=== PATIENT | female | born 1995 | race Caucasian/White ===

== ENCOUNTER 2018-02-06 17:05 | Emergency (ER) | payer BC ==
[2018-02-06] MEDS ORDERED: Lidocaine 2% Viscous Solution 15 ML Cup PO ONE (17:10)
[2018-02-06] MEDS ORDERED: Benzocaine 20% Topical Spray UD MUCMEM ONE (17:10)
--- NOTE | 2018-02-06 17:22 | EDM.PDOC ---
ED HPI GENERAL MEDICAL PROBLEM - General Chief Complaint: ENT Problem Stated Complaint: TOOTH PAIN Time Seen by Provider: 02/06/18 17:07 Source of Information: Reports: Patient History Limitations: Reports: No Limitations - History of Present Illness INITIAL COMMENTS - FREE TEXT/NARRATIVE: HISTORY AND PHYSICAL: History of present illness: patient is a 22-year-old female who presents to the emergency room with complaints of right upper dental pain. She states she has had chronic problems with the affected teeth and has been seen intermittently for pain management. She states she has made dentist appointment but has canceled them as usually her pain will resolve. Currently 13 weeks , has no current OB concerns. she denies any fever, chills, chest pain, shortness of breath or cough. Denies any abdominal pain, nausea, vomiting, diarrhea or constipation. Denies any chance of . Review of systems: As per history of present illness and below otherwise all systems reviewed and negative. Past medical history: As per history of present illness and as reviewed below otherwise noncontributory. Surgical history: As per history of present illness and as reviewed below otherwise noncontributory. Social history: No reported history of drug or alcohol abuse. Family history: As per history of present illness and as reviewed below otherwise noncontributory. Physical exam: General: Well-developed and well-nourished 22-year-old female. Alert and oriented. Nooxic appearing and in no acute distress. HEENT: Atraumatic, normocephalic, pupils equal and reactive bilaterally, negative for conjunctival pallor or scleral icterus, mucous membranes moist, throat clear, neck supple, nontender, trachea midline. No drooling or trismus noted. No meningeal signs Lungs: Clear to auscultation, breath sounds equal bilaterally, chest nontender. Heart: S1S2, regular rate and rhythm without overt murmur Abdomen: Soft, nondistended, nontender. Negative for masses or hepatosplenomegaly. Negative for costovertebral tenderness. Pelvis: Stable nontender. Genitourinary: Deferred. Rectal: Deferred. Skin: Intact, warm, dry. No lesions or rashes noted. Extremities: Atraumatic, negative for cords or calf pain. Neurovascular unremarkable. Neuro: Awake, alert, oriented. Cranial nerves II through XII unremarkable. Cerebellum unremarkable. Motor and sensory unremarkable throughout. Exam nonfocal. Notes: Discussed the importance of maintaining her dental appointments for further evaluation and management of her chronic dental pain. She voices understanding and is agreeable to plan of care. Denies any further questions at this time. Diagnostics: None Therapeutics: Dental Balls (Viscous Lidocaine/[place]) Prescription: Clindamycin Impression: Dental Abscess Plan: 1. Please take the antibiotic as prescribed. 2. Tylenol as needed for pain management (only pain medication safe in ). "Tooth Balls" have been given to you; apply along the gumline every 2-3 hours as needed. Do not swallow these; external use only. 3. Follow-up with a dentist for definitive care. Return to the ED as needed and as discussed. Definitive disposition and diagnosis as appropriate pending reevaluation and review of above. Right Oral/Mouth Pain Score (Numeric/FACES): 10 - Related Data Allergies Allergy/AdvReac Type Severity Reaction Status Date / Time amoxicillin [Amoxicillin] Allergy Hives Verified 02/06/18 17:32 codeine Allergy Nausea Verified 02/06/18 17:32 hydrocodone Allergy Nausea Verified 02/06/18 17:32 Penicillins Allergy Hives Verified 02/06/18 17:32 Home Meds: Home Meds Vits #93/Iron Fum/FA [ Formula Tablet] 1 each PO DAILY [History] Doxylamine/Pyridoxine HCl [Diclegis Dr 10-10 mg Tablet] 2 tab PO BEDTIME [History] Past Medical History - Past Health History Medical/Surgical History: Denies Medical/Surgical History ED ROS ENT - Review of Systems Review Of Systems: ROS reveals no pertinent complaints other than HPI. ED EXAM, ENT - Physical Exam Exam: See Below (See dictation) Course - Vital Signs Last Recorded V/S: Last Vital Signs Temp 98.4 F 02/06/18 17:30 Pulse 104 H 02/06/18 17:30 Resp 18 02/06/18 17:30 BP 158/92 H 02/06/18 17:30 Pulse Ox 100 02/06/18 17:30 - Orders/Labs/Meds Meds: Medications Discontinued Medications Generic Name Dose Route Start Last Admin Trade Name Freq PRN Reason Stop Dose Admin Benzocaine 2 each 02/06/18 17:10 02/06/18 17:43 Hurricaine One 20% MUCMEM 02/06/18 17:11 2 each ONETIME ONE Administration Lidocaine HCl 15 ml 02/06/18 17:10 02/06/18 17:43 Xylocaine 2% Viscous PO 02/06/18 17:11 15 ml ONETIME ONE Administration Departure - Departure Time of Disposition: 17:47 Disposition: Home, Self-Care 01 Clinical Impression: Dental abscess - Discharge Information Instructions: Dental Abscess, [id number] Referrals: Marcelina Alvarez NP [Primary Care Provider] - Forms: ED Department Discharge Additional Instructions: The following information is given to patients seen in the emergency department who are being discharged to home. This information is to outline your options for follow-up care. We provide all patients seen in our emergency department with a follow-up referral. The need for follow-up, as well as the timing and circumstances, are variable depending upon the specifics of your emergency department visit. If you don't have a primary care physician on staff, we will provide you with a referral. We always advise you to contact your personal physician following an emergency department visit to inform them of the circumstance of the visit and for follow-up with them and/or the need for any referrals to a consulting specialist. The emergency department will also refer you to a specialist when appropriate. This referral assures that you have the opportunity for follow-up care with a specialist. All of these measure are taken in an effort to provide you with optimal care, which includes your follow-up. Under all circumstances we always encourage you to contact your private physician who remains a resource for coordinating your care. When calling for follow-up care, please make the office aware that this follow-up is from your recent emergency room visit. If for any reason you are refused follow-up, please contact the [facility] Emergency Department at and asked to speak to the emergency department charge nurse. [facility] Primary Care [address] [place] [id number] 1. Please take the antibiotic as prescribed. 2. Tylenol as needed for pain management (only pain medication safe in ). "Tooth Balls" have been given to you; apply along the gumline every 2-3 hours as needed. Do not swallow these; external use only. 3. Follow-up with a dentist for definitive care. Return to the ED as needed and as discussed.
[2018-02-06 17:32] VITALS: BP 158/92
== END 2018-02-06 17:58 | disposition home or self-care (01) ==
LOC: MW.ED 17:05
DX: K04.7 Periapical abscess without sinus (principal)
CPT/HCPCS: 99282; A9270; 99283

== ENCOUNTER 2018-07-29 07:53 | Inpatient (IN) | payer BC ==
[2018-07-29] MEDS ORDERED: Carboprost Tromethamine 250 MCG/1 ML Amp IM PRN (17:56)
[2018-07-29] MEDS ORDERED: Lidocaine 1% 50 ML MDV INJECT PRN (17:56)
[2018-07-29] MEDS ORDERED: Terbutaline 1 MG/ML SDV SUBCUT PRN (17:56)
[2018-07-29] MEDS ORDERED: Magnesium Sulfate/Water 4 GM in Premix Bag 1 BAG IV ONE (17:56)
[2018-07-29] MEDS ORDERED: Butorphanol 1 MG/ML SDV IVPUSH PRN (17:56)
[2018-07-29] MEDS ORDERED: Calcium Gluconate 10% 1 GM/10 ML SDV IV PRN (17:56)
[2018-07-29] MEDS ORDERED: Tranexamic Acid 1,000 MG in Sodium Chloride 0.9% 100 ML IV PRN (17:56)
[2018-07-29] MEDS ORDERED: Misoprostol 200 MCG Tab PO PRN (17:56)
[2018-07-29] MEDS ORDERED: Nalbuphine 10 MG/1 ML Vial IVPUSH PRN (17:56)
[2018-07-29] MEDS ORDERED: Water For Irrigation,Sterile 1,000 ML Container IRR PRN (17:56)
[2018-07-29] MEDS ORDERED: Methylergonovine 0.2 MG/1 ML Amp IM PRN (17:56)
[2018-07-29] MEDS ORDERED: Lactated Ringers 1,000 ML IV SCH (18:00)
[2018-07-29] MEDS ORDERED: Oxytocin/0.9 % Sodium Chloride 30 UNIT/500 ML BAG IV SCH ×2 (18:00)
[2018-07-29] MEDS: Magnesium Sulfate/Water 40 GM/1,000 ML BAG IV SCH (19:00)
[2018-07-29] MEDS ORDERED: Vitamin B6-pyridOXINE 50 MG Tab PO SCH (21:00)
[2018-07-29] MEDS ORDERED: Lidocaine HCl/EPINEPHrine 5 ML IJ ONE (21:10)
--- NOTE | 2018-07-29 22:08 | PCM.PREANE ---
Preanesthetic Assessment - Anesthesia/Transfusion/Family Hx Anesthesia History: Prior Anesthesia Without Reaction (D+C x 2, neck lymph nodes , labor epidural: GA and epidural without issues or problems) Other Type of Anesthesia Reaction Comment: MOTHER DENIES ANY HX OF ANESTHESIA PROBLEMS Family History of Anesthesia Reaction: No Transfusion History: No Prior Transfusion(s) - Review of Systems General: No Symptoms (pre eclampsia, on magnesium sulfate drip. 37.6 weeks ) Pulmonary: No Symptoms (asthma with sheezing in the past. No history of asthma attacks. Last wheezing 2011) Cardiovascular: No Symptoms (pre eclampsia) Gastrointestinal: No Symptoms (nausea during treated with Vit B6 pills ) Neurological: No Symptoms (sciatica on right side on and off--none for 2 months now. 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 water and ice since then) Pulse: 97 (fht 127) O2 Sat by Pulse Oximetry: 100 Respiratory Rate: 22 Blood Pressure: 133/83 Temperature: 97.7 C Height: 1.52 m Weight: 79.832 kg ASA Class: 3E Mental Status: Alert & Oriented x3 Airway Class: Mallampati = 2 Dentition: Reports: Normal Dentition Thyro-Mental Finger Breadths: 2 Mouth Opening Finger Breadths: 3 (tongue stud) ROM/Head Extension: Full Lungs: Clear to Auscultation, Normal Respiratory Effort Cardiovascular: Regular Rate, Regular Rhythm - Lab Values: Laboratory Last Values WBC 13.21 K/uL (4.0-11.0) H 07/29/18 18:45 RBC 4.22 M/uL (4.30-5.90) L 07/29/18 18:45 Hgb 11.1 g/dL (12.0-16.0) L 07/29/18 18:45 Hct 34.7 % (36.0-46.0) L 07/29/18 18:45 MCV 82.2 fL (80.0-98.0) 07/29/18 18:45 MCH 26.3 pg (27.0-32.0) L 07/29/18 18:45 MCHC 32.0 g/dL (31.0-37.0) 07/29/18 18:45 RDW Std Deviation 47.1 fl (28.0-62.0) 07/29/18 18:45 RDW Coeff of Sky 16 % (11.0-15.0) H 07/29/18 18:45 Plt Count 237 K/uL (150-400) 07/29/18 18:45 MPV 10.40 fL (7.40-12.00) 07/29/18 18:45 Nucleated RBC % 0.0 /100WBC 07/29/18 18:45 Nucleated RBCs # 0 K/uL 07/29/18 18:45 Magnesium 2.0 mg/dL (1.8-2.4) 07/29/18 18:45 Blood Type B NEGATIVE 07/29/18 18:45 Antibody Screen NEGATIVE 07/29/18 18:45 - Allergies Allergies/Adverse Reactions: Allergies Allergy/AdvReac Type Severity Reaction Status Date / Time amoxicillin [Amoxicillin] Allergy Hives Verified 07/09/18 22:49 codeine Allergy Nausea Verified 07/09/18 22:49 hydrocodone Allergy Nausea Verified 07/09/18 22:49 Penicillins Allergy Hives Verified 07/09/18 22:49 - Blood Blood Available: No Product(s) Available: None - Anesthesia Plan Pre-Op Medication Ordered: None - Acknowledgements Anesthesia Type Planned: Epidural (Plan: labor epidural. Discussed with patient and baby daddy and mom and dad and grandma and grandpa. all questions answered. 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 , Other (See Below) Other OB/BYN History: D&C Apr 2014 and Jun 2016 Psychiatric History: Reports: Anxiety - Past Surgical History HEENT Surgical History: Reports: Other (See Below) Other HEENT Surgeries/Procedures: Neck Surgery Jul 2010 Female Surgical History: Reports: D&C - SUBSTANCE USE Smoking Status *Q: Former Smoker Tobacco Use Within Last Twelve Months: Cigarettes Second Hand Smoke Exposure: Yes Recreational Drug Use History: No - HOME MEDS Home Medications: Home Meds Vits #93/Iron Fum/FA [ Formula Tablet] 1 each PO DAILY [History] Doxylamine/Pyridoxine HCl [Diclegis Dr 10-10 mg Tablet] 2 tab PO BEDTIME [History] - CURRENT (IN HOUSE) MEDS Current Meds: Current Medications Butorphanol Tartrate (Stadol) 1 mg IVPUSH ASDIRECTED PRN PRN Reason: Pain Calcium Gluconate (Calcium Gluconate) 1 gm IV ASDIRECTED PRN PRN Reason: respiratory distress Carboprost Tromethamine (Hemabate Ds) 250 mcg IM ASDIRECTED PRN PRN Reason: Post Hemorrhage Lactated Ringer's (Ringers, Lactated) 1,000 mls @ 150 mls/hr IV ASDIRECTED NAEEM Last Admin: 07/29/18 19:20 Dose: 150 mls/hr Magnesium Sulfate (Magnesium Sulfate 40 Gm In Water 1000 Ml) 40 gm in 1,000 mls @ 50 mls/hr IV ASDIRECTED NAEEM; Protocol Oxytocin/Sodium Chloride (Oxytocin 30 Unit/500 Ml-Ns) 30 unit in 500 mls @ 2 mls/hr IV TITRATE NAEEM; Protocol Last Titration: 07/29/18 21:39 Dose: 6 munits/min, 6 mls/hr Oxytocin/Sodium Chloride (Oxytocin 30 Unit/500 Ml-Ns) 30 unit in 500 mls @ 999 mls/hr IV TITRATE NAEEM Tranexamic Acid 1,000 mg/ (Sodium Chloride) 110 mls @ 660 mls/hr IV ONETIME PRN PRN Reason: Bleeding Lidocaine HCl (Xylocaine 1%) 50 ml INJECT ONETIME PRN PRN Reason: Laceration repair Methylergonovine Maleate (Methergine) 0.2 mg IM ASDIRECTED PRN PRN Reason: Post Hemorrhage Misoprostol (Cytotec) 200 mcg PO ONETIME PRN PRN Reason: Post Hemorrhage Nalbuphine HCl (Nubain) 10 mg IVPUSH ASDIRECTED PRN PRN Reason: Pain (severe 7-10) Pyridoxine HCl (Vitamin B6-Pyridoxine) 25 mg PO BEDTIME NAEEM Sterile Water (Sterile Water For Irrigation) 1,000 ml IRR ASDIRECTED PRN PRN Reason: delivery Terbutaline Sulfate (Brethine) 0.25 mg SUBCUT ASDIRECTED PRN PRN Reason: Tacysystole Discontinued Medications Magnesium Sulfate 4 gm/ Premix 100 mls @ 300 mls/hr IV BOLUS ONE Stop: 07/29/18 18:15 Last Admin: 07/29/18 18:40 Dose: 300 mls/hr Fentanyl/Bupivacaine HCl (Zcuywlbv-Zymyl-Ew 2 Mcg/Ml-0.125%) Confirm Administered Dose 100 mls @ as directed .ROUTE .STK-MED ONE Stop: 07/29/18 21:10 Lidocaine/Epinephrine (Lidocaine 1.5%-Epi 1:200,000) Confirm Administered Dose 10 ml IJ .STK-MED ONE Stop: 07/29/18 21:11
[2018-07-30] MEDS ORDERED: Ondansetron 4 MG/2 ML SDV IVPUSH PRN (00:25)
--- NOTE | 2018-07-30 08:14 | PCM.DEL ---
L & D Note - General Info Date of Service: 07/30/18 Mother's Due Date: 08/13/18 - Delivery Note Labor: Augmented by ARM, Induced by Oxytocin Delivery Outcome: Livebirth Delivery Method: Spontaneous Vaginal Delivery-Single Nuchal Cord: Present Prep: Other Anesthesia Type: Epidural Episiotomy Type: None Laceration: None Placenta: Intact, Spontaneous Cord: 3 Vessels Estimated Blood Loss: 200 Resuscitation Needed: No Score 1 min: 7 Score 5 min: 9 Second Stage Interventions: Reports: Encouragement Given, Pushing, Feet in Foot Rests (Liveborn male 03/06 weight 3030 grams. ) - General Info Date of Service: 07/30/18 - Patient Data Vitals - Most Recent: Last Vital Signs Temp 97.7 C H 07/29/18 22:08 Pulse 97 07/29/18 22:08 Resp 22 H 07/29/18 22:08 BP 133/83 07/29/18 22:08 Pulse Ox 100 07/29/18 22:08 Weight - Most Recent: 79.832 kg I&O - Last 24 Hours: Intake & Output 07/29/18 07/30/18 07/30/18 22:59 06:59 14:59 Intake Total 1140 706 140 Output Total 420 245 140 Balance 720 461 0 Lab Results Last 24 Hours: Laboratory Results - last 24 hr 07/29/18 07/29/18 07/29/18 Range/Units 18:45 18:45 18:45 WBC 13.21 H (4.0-11.0) K/uL RBC 4.22 L (4.30-5.90) M/uL Hgb 11.1 L (12.0-16.0) g/dL Hct 34.7 L (36.0-46.0) % MCV 82.2 (80.0-98.0) fL MCH 26.3 L (27.0-32.0) pg MCHC 32.0 (31.0-37.0) g/dL RDW Std Deviation 47.1 (28.0-62.0) fl RDW Coeff of Sky 16 H (11.0-15.0) % Plt Count 237 (150-400) K/uL MPV 10.40 (7.40-12.00) fL Nucleated RBC % 0.0 /100WBC Nucleated RBCs # 0 K/uL Magnesium 2.0 (1.8-2.4) mg/dL Blood Type B NEGATIVE Antibody Screen NEGATIVE 07/29/18 07/30/18 Range/Units 23:07 05:57 WBC (4.0-11.0) K/uL RBC (4.30-5.90) M/uL Hgb (12.0-16.0) g/dL Hct (36.0-46.0) % MCV (80.0-98.0) fL MCH (27.0-32.0) pg MCHC (31.0-37.0) g/dL RDW Std Deviation (28.0-62.0) fl RDW Coeff of Sky (11.0-15.0) % Plt Count (150-400) K/uL MPV (7.40-12.00) fL Nucleated RBC % /100WBC Nucleated RBCs # K/uL Magnesium 5.1 H 6.4 H (1.8-2.4) mg/dL Blood Type Antibody Screen Med Orders - Current: Current Medications Butorphanol Tartrate (Stadol) 1 mg IVPUSH ASDIRECTED PRN PRN Reason: Pain Calcium Gluconate (Calcium Gluconate) 1 gm IV ASDIRECTED PRN PRN Reason: respiratory distress Carboprost Tromethamine (Hemabate Ds) 250 mcg IM ASDIRECTED PRN PRN Reason: Post Hemorrhage Lactated Ringer's (Ringers, Lactated) 1,000 mls @ 150 mls/hr IV ASDIRECTED NAEEM Last Admin: 07/29/18 19:20 Dose: 150 mls/hr Magnesium Sulfate (Magnesium Sulfate 40 Gm In Water 1000 Ml) 40 gm in 1,000 mls @ 50 mls/hr IV ASDIRECTED NAEEM; Protocol Last Titration: 07/30/18 07:13 Dose: 1 gm/hr, 25 mls/hr Oxytocin/Sodium Chloride (Oxytocin 30 Unit/500 Ml-Ns) 30 unit in 500 mls @ 2 mls/hr IV TITRATE NAEEM; Protocol Last Titration: 07/30/18 07:32 Dose: 11 munits/min, 11 mls/hr Oxytocin/Sodium Chloride (Oxytocin 30 Unit/500 Ml-Ns) 30 unit in 500 mls @ 999 mls/hr IV TITRATE NAEEM Tranexamic Acid 1,000 mg/ (Sodium Chloride) 110 mls @ 660 mls/hr IV ONETIME PRN PRN Reason: Bleeding Lidocaine HCl (Xylocaine 1%) 50 ml INJECT ONETIME PRN PRN Reason: Laceration repair Methylergonovine Maleate (Methergine) 0.2 mg IM ASDIRECTED PRN PRN Reason: Post Hemorrhage Misoprostol (Cytotec) 200 mcg PO ONETIME PRN PRN Reason: Post Hemorrhage Nalbuphine HCl (Nubain) 10 mg IVPUSH ASDIRECTED PRN PRN Reason: Pain (severe 7-10) Ondansetron HCl (Zofran) 4 mg IVPUSH Q6H PRN PRN Reason: Nausea/Vomiting Last Admin: 07/30/18 00:37 Dose: 4 mg Pyridoxine HCl (Vitamin B6-Pyridoxine) 25 mg PO BEDTIME NAEEM Last Admin: 07/29/18 22:38 Dose: 25 mg Sterile Water (Sterile Water For Irrigation) 1,000 ml IRR ASDIRECTED PRN PRN Reason: delivery Terbutaline Sulfate (Brethine) 0.25 mg SUBCUT ASDIRECTED PRN PRN Reason: Tacysystole Discontinued Medications Magnesium Sulfate 4 gm/ Premix 100 mls @ 300 mls/hr IV BOLUS ONE Stop: 07/29/18 18:15 Last Admin: 07/29/18 18:40 Dose: 300 mls/hr Fentanyl/Bupivacaine HCl (Efrsyqss-Ckmry-Ea 2 Mcg/Ml-0.125%) Confirm Administered Dose 100 mls @ as directed .ROUTE .[employer]-MED ONE Stop: 07/29/18 21:10 Lidocaine HCl (Xylocaine-Mpf 1%) Confirm Administered Dose 5 mls @ as directed .ROUTE .STK-MED ONE Stop: 07/30/18 05:59 Fentanyl/Bupivacaine HCl (Ppazfcsh-Kwlmf-Gl 2 Mcg/Ml-0.125%) Confirm Administered Dose 100 mls @ as directed .ROUTE .STK-MED ONE Stop: 07/30/18 06:03 Lidocaine/Epinephrine (Lidocaine 1.5%-Epi 1:200,000) Confirm Administered Dose 10 ml IJ .[employer]-MED ONE Stop: 07/29/18 21:11 - Problem List & Annotations (1) Pre-eclampsia, delivered SNOMED Code(s): 523724397, 865469877 Code(s): O14.94 - UNSPECIFIED PRE-ECLAMPSIA, COMPLICATING CHILDBIRTH Status : Acute Current Visit: Yes (2) Vaginal delivery SNOMED Code(s): 701234611 Code(s): O80 - ENCOUNTER FOR FULL-TERM UNCOMPLICATED DELIVERY Status: Acute Current Visit: Yes - Problem List Review Problem List Initiated/Reviewed/Updated: Yes - My Orders Last 24 Hours: My Active Orders 07/29/18 17:56 Butorphanol [Stadol] 1 mg IVPUSH ASDIRECTED PRN Calcium Gluconate 1 gm IV ASDIRECTED PRN Carboprost Tromethamine [Hemabate DS] 250 mcg IM ASDIRECTED PRN Lidocaine 1% [Xylocaine 1%] 50 ml INJECT ONETIME PRN Methylergonovine [Methergine] 0.2 mg IM ASDIRECTED PRN Nalbuphine [Nubain] 10 mg IVPUSH ASDIRECTED PRN Terbutaline [Brethine] 0.25 mg SUBCUT ASDIRECTED PRN Tranexamic Acid [Cyklokapron] 1,000 mg Sodium Chloride 0.9% [Normal Saline] 100 ml IV ONETIME Water For Irrigation,Sterile [Sterile Water for Irrigation] 1,000 ml IRR ASDIRECTED PRN miSOPROStol [Cytotec] 200 mcg PO ONETIME PRN Resuscitation Status Routine 07/29/18 18:00 Lactated Ringers [Ringers, Lactated] 1,000 ml IV ASDIRECTED Magnesium Sulfate/Water [Magnesium Sulfate 40 GM in Water 1000 ML] 40 gm in 1, 000 ml IV ASDIRECTED Oxytocin/0.9 % Sodium Chloride [Oxytocin 30 Unit/500 ML-NS] 30 unit in 500 ml IV TITRATE Oxytocin/0.9 % Sodium Chloride [Oxytocin 30 Unit/500 ML-NS] 30 unit in 500 ml IV TITRATE 07/29/18 18:06 Patient Status [ADT] Routine Bedrest Bathroom Privileges [RC] ASDIRECTED Bedrest [RC] ASDIRECTED Communication Order [RC] ASDIRECTED Communication Order [RC] ASDIRECTED Communication Order [RC] PRN Communication Order [RC] PRN Height and Weight [RC] DAILY Intake and Output [RC] QSHIFT Notify Provider [RC] PRN Notify Provider [RC] PRN Notify Provider [RC] PRN Notify Provider [RC] STAT Oxygen Therapy [RC] ASDIRECTED Vaginal Exam [RC] PRN Vital Signs [RC] ASDIRECTED Vital Signs [RC] PER UNIT ROUTINE Electronic Heart Tones Ext w TOCO [WOMSER] Per Unit Routine Scalp Electrode [WOMSER] Per Unit Routine Peripheral IV Insertion Adult [OM.PC] Routine Peripheral IV Insertion Adult [OM.PC] Routine 07/29/18 18:08 Equipment to Bedside [RC] PRN Notify Provider Status Change [RC] ASDIRECTED 07/29/18 18:15 Deep Tendon Reflexes [WOMSER] Q1H Medication Administration Instruction [OM.PC] Q3H 07/29/18 19:15 Deep Tendon Reflexes [WOMSER] Q1H 07/29/18 20:15 Deep Tendon Reflexes [WOMSER] Q1H 07/29/18 21:00 Vitamin B6-pyridOXINE 25 mg PO BEDTIME 07/29/18 21:15 Deep Tendon Reflexes [WOMSER] Q1H 07/29/18 22:15 Deep Tendon Reflexes [WOMSER] Q1H 07/29/18 23:15 Deep Tendon Reflexes [WOMSER] Q1H 07/30/18 00:15 Deep Tendon Reflexes [WOMSER] Q1H 07/30/18 00:25 Ondansetron [Zofran] 4 mg IVPUSH Q6H PRN 07/30/18 01:15 Deep Tendon Reflexes [WOMSER] Q1H 07/30/18 02:15 Deep Tendon Reflexes [WOMSER] Q1 07/30/18 03:15 Deep Tendon Reflexes [WOMSER] Q1 07/30/18 04:15 Deep Tendon Reflexes [WOMSER] Q1 07/30/18 05:15 Deep Tendon Reflexes [WOMSER] Q1 07/30/18 06:15 Deep Tendon Reflexes [WOMSER] Q1 07/30/18 07:15 Deep Tendon Reflexes [WOMSER] Q1 07/30/18 08:15 Deep Tendon Reflexes [WOMSER] Q1 07/30/18 09:15 Deep Tendon Reflexes [WOMSER] Q1 07/30/18 10:15 Deep Tendon Reflexes [WOMSER] Q1 07/30/18 11:15 Deep Tendon Reflexes [WOMSER] Q1H 07/30/18 11:45 MAGNESIUM [CHEM] Q6H 07/30/18 12:15 Deep Tendon Reflexes [WOMSER] Q1H 07/30/18 13:15 Deep Tendon Reflexes [WOMSER] Q1H 07/30/18 14:15 Deep Tendon Reflexes [WOMSER] Q1H 07/30/18 15:15 Deep Tendon Reflexes [WOMSER] Q1H 07/30/18 16:15 Deep Tendon Reflexes [WOMSER] Q1 07/30/18 17:15 Deep Tendon Reflexes [WOMSER] Q1H 07/30/18 17:45 MAGNESIUM [CHEM] Q6H 07/30/18 23:45 MAGNESIUM [CHEM] Q6H 07/31/18 05:45 MAGNESIUM [CHEM] Q6H
[2018-07-30] MEDS ORDERED: Benzocaine/Menthol 20%-0.5% Spray 78 GM Cannister TOP PRN (08:15)
[2018-07-30] MEDS ORDERED: Lanolin 100% Cream 7 GM Tube TOP PRN (08:15)
[2018-07-30] MEDS ORDERED: Carboprost Tromethamine 250 MCG/1 ML Amp IM PRN (08:15)
[2018-07-30] MEDS ORDERED: Bisacodyl 10 MG Supp RECTAL PRN (08:15)
[2018-07-30] MEDS ORDERED: Acetaminophen 500 MG Tab PO PRN (08:15)
[2018-07-30] MEDS ORDERED: Docusate Sodium 100 MG Cap PO PRN (08:15)
[2018-07-30] MEDS ORDERED: Witch Hazel Medicated Pads 40/Jar TOP PRN (08:15)
--- NOTE | 2018-07-30 09:04 | PCM48HPAN ---
Post Anesthesia Note - EVALUATION WITHIN 48HRS OF ANESTHETIC Vital Signs in Normal Range: Yes Patient Participated in Evaluation: Yes Respiratory Function Stable: Yes Airway Patent: Yes Cardiovascular Function Stable: Yes Hydration Status Stable: Yes Pain Control Satisfactory: Yes Nausea and Vomiting Control Satisfactory: Yes Mental Status Recovered: Yes Pulse Rate: 97 (fht 127) Resp Rate: 20 Temperature: 97.7 C Blood Pressure: 137/85 - COMMENTS/OBSERVATIONS Free Text/Narrative:: delivered earlier this morning. I was called in at 0600 to change the epidural infusion bag. I subsequently re-bolused her for the delivery an hour later. Scarlett Mcdonough MD
[2018-07-30] MEDS: Ibuprofen 400 MG Tab PO PRN ×2 (09:29→14:39)
[2018-07-30] MEDS: Acetaminophen 500 MG Tab PO PRN (18:14)
[2018-07-30] MEDS: Magnesium Sulfate/Water 40 GM/1,000 ML BAG IV SCH (22:06)
[2018-07-31] MEDS: Acetaminophen 500 MG Tab PO PRN ×2 (02:48→12:06)
[2018-07-31] MEDS: Ibuprofen 400 MG Tab PO PRN ×2 (05:04→20:01)
--- NOTE | 2018-07-31 07:13 | PCM.PNPP ---
- General Info Date of Service: 07/31/18 Functional Status: Reports: Pain Controlled, Tolerating Diet, Ambulating, Urinating - Review of Systems General: Reports: No Symptoms HEENT: Reports: No Symptoms Pulmonary: Reports: No Symptoms Cardiovascular: Reports: No Symptoms Gastrointestinal: Reports: No Symptoms Genitourinary: Reports: No Symptoms Musculoskeletal: Reports: No Symptoms Skin: Reports: No Symptoms Neurological: Reports: No Symptoms Psychiatric: Reports: No Symptoms - General Info Date of Service: 07/31/18 - Patient Data Vital Signs - Most Recent: Last Vital Signs Temp 36.6 C 07/31/18 04:50 Pulse 86 07/31/18 04:50 Resp 16 07/31/18 04:50 BP 122/64 07/31/18 04:50 Pulse Ox 97 07/31/18 04:50 Weight - Most Recent: 79.832 kg I&O - Last 24 Hours: Intake & Output 07/30/18 07/31/18 07/31/18 22:59 06:59 14:59 Intake Total 280 506 Output Total 717 675 Balance -437 -169 Lab Results - Last 24 Hours: Laboratory Results - last 24 hr 07/30/18 07/30/18 07/30/18 Range/Units 07:53 10:31 11:58 Hgb (12.0-16.0) g/dL Hct (36.0-46.0) % Cord ABG pH 7.314 (7.18-7.38) Cord ABG Base Excess -6 (-10--2) Cord VBG pH 7.397 (7.25-7.45) Cord VBG Base Excess -6 (-10--2) Magnesium 5.0 H (1.8-2.4) mg/dL Screen NEGATIVE (NEGATIVE) RhIG Candidate? YES Rhogam Indicated YES, BABY RH POS H 07/30/18 07/31/18 Range/Units 17:43 05:54 Hgb 9.9 L (12.0-16.0) g/dL Hct 31.6 L (36.0-46.0) % Cord ABG pH (7.18-7.38) Cord ABG Base Excess (-10--2) Cord VBG pH (7.25-7.45) Cord VBG Base Excess (-10--2) Magnesium 5.1 H (1.8-2.4) mg/dL Screen (NEGATIVE) RhIG Candidate? Rhogam Indicated Med Orders - Current: Current Medications Acetaminophen (Tylenol Extra Strength) 500 mg PO Q4H PRN PRN Reason: Pain Acetaminophen (Tylenol Extra Strength) 1,000 mg PO Q4H PRN PRN Reason: Pain Last Admin: 07/31/18 02:48 Dose: 1,000 mg Benzocaine/Menthol (Dermoplast Pain Relief 20%-0.5% Brilliant) 78 gm TOP ASDIRECTED PRN PRN Reason: Perineal Comfort Measure Bisacodyl (Dulcolax) 10 mg RECTAL ONETIME PRN PRN Reason: Constipation Butorphanol Tartrate (Stadol) 1 mg IVPUSH ASDIRECTED PRN PRN Reason: Pain Carboprost Tromethamine (Hemabate Ds) 250 mcg IM ASDIRECTED PRN PRN Reason: Excessive vaginal bleeding Docusate Sodium (Colace) 100 mg PO BID PRN PRN Reason: Constipation Last Admin: 07/30/18 09:28 Dose: 100 mg Emollient Ointment (Lansinoh Hpa) 0 gm TOP ASDIRECTED PRN PRN Reason: Sore Nipples Last Admin: 07/31/18 00:01 Dose: 1 tube Lactated Ringer's (Ringers, Lactated) 1,000 mls @ 150 mls/hr IV ASDIRECTED NAEEM Last Admin: 07/29/18 19:20 Dose: 150 mls/hr Ibuprofen (Motrin) 400 mg PO Q4H PRN PRN Reason: Pain Last Admin: 07/31/18 05:04 Dose: 400 mg Witch Denita (Tucks) 1 pad TOP ASDIRECTED PRN PRN Reason: comfort care Discontinued Medications Calcium Gluconate (Calcium Gluconate) 1 gm IV ASDIRECTED PRN PRN Reason: respiratory distress Carboprost Tromethamine (Hemabate Ds) 250 mcg IM ASDIRECTED PRN PRN Reason: Post Hemorrhage Magnesium Sulfate 4 gm/ Premix 100 mls @ 300 mls/hr IV BOLUS ONE Stop: 07/29/18 18:15 Last Admin: 07/29/18 18:40 Dose: 300 mls/hr Magnesium Sulfate (Magnesium Sulfate 40 Gm In Water 1000 Ml) 40 gm in 1,000 mls @ 50 mls/hr IV ASDIRECTED NAEEM; Protocol Last Admin: 07/30/18 22:06 Dose: 1 gm/hr, 25 mls/hr Oxytocin/Sodium Chloride (Oxytocin 30 Unit/500 Ml-Ns) 30 unit in 500 mls @ 2 mls/hr IV TITRATE NAEEM; Protocol Last Titration: 07/30/18 07:32 Dose: 11 munits/min, 11 mls/hr Oxytocin/Sodium Chloride (Oxytocin 30 Unit/500 Ml-Ns) 30 unit in 500 mls @ 999 mls/hr IV TITRATE NAEEM Tranexamic Acid 1,000 mg/ (Sodium Chloride) 110 mls @ 660 mls/hr IV ONETIME PRN PRN Reason: Bleeding Fentanyl/Bupivacaine HCl (Mrqdttnl-Dhgab-Yy 2 Mcg/Ml-0.125%) Confirm Administered Dose 100 mls @ as directed .ROUTE .[employer]-MED ONE Stop: 07/29/18 21:10 Last Admin: 07/30/18 21:38 Dose: Not Given Lidocaine HCl (Xylocaine-Mpf 1%) Confirm Administered Dose 5 mls @ as directed .ROUTE .[employer]-MED ONE Stop: 07/30/18 05:59 Fentanyl/Bupivacaine HCl (Cqluynfx-Qjamf-Mn 2 Mcg/Ml-0.125%) Confirm Administered Dose 100 mls @ as directed .ROUTE .RETAIL PROMED ONE Stop: 07/30/18 06:03 Last Admin: 07/30/18 21:38 Dose: Not Given Lidocaine HCl (Xylocaine 1%) 50 ml INJECT ONETIME PRN PRN Reason: Laceration repair Lidocaine/Epinephrine (Lidocaine 1.5%-Epi 1:200,000) Confirm Administered Dose 10 ml IJ .[employer]-MED ONE Stop: 07/29/18 21:11 Last Admin: 07/30/18 21:38 Dose: Not Given Methylergonovine Maleate (Methergine) 0.2 mg IM ASDIRECTED PRN PRN Reason: Post Hemorrhage Misoprostol (Cytotec) 200 mcg PO ONETIME PRN PRN Reason: Post Hemorrhage Nalbuphine HCl (Nubain) 10 mg IVPUSH ASDIRECTED PRN PRN Reason: Pain (severe 7-10) Ondansetron HCl (Zofran) 4 mg IVPUSH Q6H PRN PRN Reason: Nausea/Vomiting Last Admin: 07/30/18 00:37 Dose: 4 mg Pyridoxine HCl (Vitamin B6-Pyridoxine) 25 mg PO BEDTIME NAEEM Last Admin: 07/29/18 22:38 Dose: 25 mg Sterile Water (Sterile Water For Irrigation) 1,000 ml IRR ASDIRECTED PRN PRN Reason: delivery Terbutaline Sulfate (Brethine) 0.25 mg SUBCUT ASDIRECTED PRN PRN Reason: Tacysystole - Interaction Infant Disposition, : [place] in Room with Family Infant Interaction: Holding Feeding: Attempted ; Nursed Fair/Poor Support Person: Significant Other - Recovery Exam Fundal Tone: Boggy Fundal Level: 1 Fingerbreadths Below Umbilicus Fundal Placement: Midline Lochia Amount: Scant Lochia Color: Rubra/Red Perineum Description: Intact, Minimal Bruising/Swelling Episiotomy/Laceration: None Bladder Status: Voiding Urinary Elimination: Voided - Exam General: Alert, Oriented Cardiovascular: Regular Rate, Regular Rhythm GI/Abdominal Exam: Normal Bowel Sounds, Soft, Non-Tender, No Organomegaly, No Distention, No Abnormal Bruit, No Mass, Pelvis Stable Skin: Warm, Dry, Intact Neurological: No New Focal Deficit Psy/Mental Status: Alert, Normal Affect, Normal Mood - Problem List & Annotations (1) Pre-eclampsia, delivered SNOMED Code(s): 313745416, 469078790 Code(s): O14.94 - UNSPECIFIED PRE-ECLAMPSIA, COMPLICATING CHILDBIRTH Status : Acute Current Visit: Yes (2) Vaginal delivery SNOMED Code(s): 760939437 Code(s): O80 - ENCOUNTER FOR FULL-TERM UNCOMPLICATED DELIVERY Status: Acute Current Visit: Yes - Problem List Review Problem List Initiated/Reviewed/Updated: Yes - My Orders Last 24 Hours: My Active Orders 07/30/18 08:15 Patient Status [ADT] Routine May Shower [RC] ASDIRECTED Up ad [place] [RC] ASDIRECTED Vital Signs [RC] PER UNIT ROUTINE Acetaminophen [Tylenol Extra Strength] 1,000 mg PO Q4H PRN Acetaminophen [Tylenol Extra Strength] 500 mg PO Q4H PRN Benzocaine/Menthol [Dermoplast Pain Relief 20%-0.5% Brilliant] 78 gm TOP ASDIRECTED PRN Bisacodyl [Dulcolax] 10 mg RECTAL ONETIME PRN Carboprost Tromethamine [Hemabate DS] 250 mcg IM ASDIRECTED PRN Docusate Sodium [Colace] 100 mg PO BID PRN Ibuprofen [Motrin] 400 mg PO Q4H PRN Lanolin [Lansinoh HPA] See Dose Instructions TOP ASDIRECTED PRN Witch Denita [Tucks] 1 pad TOP ASDIRECTED PRN Assess Lochia [WOMSER] Per Unit Routine Assess Uterine Involution [WOMSER] Per Unit Routine Peripheral IV Discontinue [OM.PC] Routine Resuscitation Status Routine 07/30/18 08:16 Perineal Care [OM.PC] Per Unit Routine 07/31/18 Breakfast Regular Diet [DIET] - Assessment Assessment:: PPD#1 after stable minimal lochia. Denies headache or blurred vision, Feeling well off of magnesium. - Plan Plan:: Bp's have been normal, continue with care, continue monitoring BP today, patient would like to stay until tomorrow if possible.
[2018-08-01] MEDS: Ibuprofen 400 MG Tab PO PRN (03:48)
--- NOTE | 2018-08-01 08:17 | OR ---
SURGEON: Mariah Paige M.D. DATE OF DELIVERY: 07/30/2018 PREOPERATIVE DIAGNOSES: 1. A 38-week intrauterine . 2. Mild preeclampsia. POSTOPERATIVE DIAGNOSES: 1. A 38-week intrauterine . 2. Mild preeclampsia. PROCEDURES: Magnesium seizure prophylaxis, Pitocin induction of labor, artificial rupture of membranes, and term spontaneous vaginal delivery. ANESTHESIA: Epidural. ESTIMATED BLOOD LOSS: Less than 200 mL. FINDINGS: Liveborn male, scores 7 and 9, weighing 3030 g. Placenta spontaneous, Schultze intact with 3 vessels. Perineum intact. BRIEF HISTORY: This is a 22-year-old female. She is G3, P1-0-1-1. She presents at 37 and 6/7 weeks' gestation for induction of labor due to elevated 24-hour urine of 364 mg, mildly elevated blood pressures. She denies headache or visual changes. She was placed on magnesium. She was placed on Pitocin. She had category 1 heart tones. When she was 3 cm dilated, she had artificial rupture of membranes. Clear fluid noted. She received an epidural for pain control. She was continued on Pitocin and magnesium until she progressed to complete. DESCRIPTION OF PROCEDURE: With the patient in dorsolithotomy position, the patient pushed over 30-minute time period to a 5+ station. At which time, the head was delivered spontaneously and atraumatically over the perineum with support with subsequent delivery of the 's shoulders and body without any difficulty. The was bulb suctioned by nose and mouth. Cord was clamped x2 and cut, and the was handed to the mother in the presence of the nurse attending delivery. The infant was a liveborn male, scores 7 and 9, weight of 3030 g. Cord blood was collected for cord ABGs, as well as routine cord blood sampling. Pitocin was initiated after delivery of the infant to assist with delivery. The placenta, which was delivered spontaneously, Schultze intact with 3 vessels. Upon inspection of the pelvis and perineum, there were no periurethral, vaginal sidewall, cervical, rectal, or perineal lacerations. EBL was less than 200 mL. There were no known complications. Mother and baby are in LDRP in good condition. She will be continued on magnesium seizure prophylaxis postoperatively. TANO / KAY /[id number]
--- NOTE | 2018-08-01 09:08 | PCM.PNPP ---
- General Info Date of Service: 08/01/18 Functional Status: Reports: Pain Controlled, Tolerating Diet, Ambulating, Urinating - Review of Systems General: Reports: No Symptoms HEENT: Reports: No Symptoms Pulmonary: Reports: No Symptoms Cardiovascular: Reports: No Symptoms Gastrointestinal: Reports: No Symptoms Genitourinary: Reports: No Symptoms Musculoskeletal: Reports: No Symptoms Skin: Reports: No Symptoms Neurological: Reports: No Symptoms Psychiatric: Reports: No Symptoms - Patient Data Vital Signs - Most Recent: Last Vital Signs Temp 36.8 C 08/01/18 03:40 Pulse 86 08/01/18 03:40 Resp 16 08/01/18 03:40 BP 122/79 08/01/18 03:40 Pulse Ox 98 08/01/18 03:40 Weight - Most Recent: 79.832 kg Med Orders - Current: Current Medications Acetaminophen (Tylenol Extra Strength) 500 mg PO Q4H PRN PRN Reason: Pain Acetaminophen (Tylenol Extra Strength) 1,000 mg PO Q4H PRN PRN Reason: Pain Last Admin: 07/31/18 12:06 Dose: 1,000 mg Benzocaine/Menthol (Dermoplast Pain Relief 20%-0.5% [place]) 78 gm TOP ASDIRECTED PRN PRN Reason: Perineal Comfort Measure Bisacodyl (Dulcolax) 10 mg RECTAL ONETIME PRN PRN Reason: Constipation Butorphanol Tartrate (Stadol) 1 mg IVPUSH ASDIRECTED PRN PRN Reason: Pain Carboprost Tromethamine (Hemabate Ds) 250 mcg IM ASDIRECTED PRN PRN Reason: Excessive vaginal bleeding Docusate Sodium (Colace) 100 mg PO BID PRN PRN Reason: Constipation Last Admin: 07/30/18 09:28 Dose: 100 mg Emollient Ointment (Lansinoh Hpa) 0 gm TOP ASDIRECTED PRN PRN Reason: Sore Nipples Last Admin: 07/31/18 00:01 Dose: 1 tube Lactated Ringer's (Ringers, Lactated) 1,000 mls @ 150 mls/hr IV ASDIRECTED NAEEM Last Admin: 07/29/18 19:20 Dose: 150 mls/hr Ibuprofen (Motrin) 400 mg PO Q4H PRN PRN Reason: Pain Last Admin: 08/01/18 03:48 Dose: 400 mg Witch Denita (Tucks) 1 pad TOP ASDIRECTED PRN PRN Reason: comfort care Discontinued Medications Calcium Gluconate (Calcium Gluconate) 1 gm IV ASDIRECTED PRN PRN Reason: respiratory distress Carboprost Tromethamine (Hemabate Ds) 250 mcg IM ASDIRECTED PRN PRN Reason: Post Hemorrhage Magnesium Sulfate 4 gm/ Premix 100 mls @ 300 mls/hr IV BOLUS ONE Stop: 07/29/18 18:15 Last Admin: 07/29/18 18:40 Dose: 300 mls/hr Magnesium Sulfate (Magnesium Sulfate 40 Gm In Water 1000 Ml) 40 gm in 1,000 mls @ 50 mls/hr IV ASDIRECTED NAEEM; Protocol Last Admin: 07/30/18 22:06 Dose: 1 gm/hr, 25 mls/hr Oxytocin/Sodium Chloride (Oxytocin 30 Unit/500 Ml-Ns) 30 unit in 500 mls @ 2 mls/hr IV TITRATE NAEEM; Protocol Last Titration: 07/30/18 07:32 Dose: 11 munits/min, 11 mls/hr Oxytocin/Sodium Chloride (Oxytocin 30 Unit/500 Ml-Ns) 30 unit in 500 mls @ 999 mls/hr IV TITRATE NAEEM Tranexamic Acid 1,000 mg/ (Sodium Chloride) 110 mls @ 660 mls/hr IV ONETIME PRN PRN Reason: Bleeding Fentanyl/Bupivacaine HCl (Hhgsohjv-Jfmuf-Ij 2 Mcg/Ml-0.125%) Confirm Administered Dose 100 mls @ as directed .ROUTE .[employer]-MED ONE Stop: 07/29/18 21:10 Last Admin: 07/30/18 21:38 Dose: Not Given Lidocaine HCl (Xylocaine-Mpf 1%) Confirm Administered Dose 5 mls @ as directed .ROUTE .STK-MED ONE Stop: 07/30/18 05:59 Fentanyl/Bupivacaine HCl (Tldkyzhg-Xhuoh-Re 2 Mcg/Ml-0.125%) Confirm Administered Dose 100 mls @ as directed .ROUTE .[employer]-MED ONE Stop: 07/30/18 06:03 Last Admin: 07/30/18 21:38 Dose: Not Given Lidocaine HCl (Xylocaine 1%) 50 ml INJECT ONETIME PRN PRN Reason: Laceration repair Lidocaine/Epinephrine (Lidocaine 1.5%-Epi 1:200,000) Confirm Administered Dose 10 ml IJ .STK-MED ONE Stop: 07/29/18 21:11 Last Admin: 07/30/18 21:38 Dose: Not Given Methylergonovine Maleate (Methergine) 0.2 mg IM ASDIRECTED PRN PRN Reason: Post Hemorrhage Misoprostol (Cytotec) 200 mcg PO ONETIME PRN PRN Reason: Post Hemorrhage Nalbuphine HCl (Nubain) 10 mg IVPUSH ASDIRECTED PRN PRN Reason: Pain (severe 7-10) Ondansetron HCl (Zofran) 4 mg IVPUSH Q6H PRN PRN Reason: Nausea/Vomiting Last Admin: 07/30/18 00:37 Dose: 4 mg Pyridoxine HCl (Vitamin B6-Pyridoxine) 25 mg PO BEDTIME NAEEM Last Admin: 07/29/18 22:38 Dose: 25 mg Sterile Water (Sterile Water For Irrigation) 1,000 ml IRR ASDIRECTED PRN PRN Reason: delivery Terbutaline Sulfate (Brethine) 0.25 mg SUBCUT ASDIRECTED PRN PRN Reason: Tacysystole - Interaction Disposition, : [place] in Room with Family Interaction: Holding Infant Feeding: Attempted ; Nursed Fair/Poor Support Person: Significant Other - Recovery Exam Fundal Tone: Firm Fundal Level: 1 Fingerbreadths Below Umbilicus Fundal Placement: Midline Lochia Amount: Scant Lochia Color: Rubra/Red Perineum Description: Intact, Minimal Bruising/Swelling Episiotomy/Laceration: None Bladder Status: Voiding Urinary Elimination: Voided - Exam General: Alert, Oriented Neck: Supple Lungs: Clear to Auscultation, Normal Respiratory Effort Cardiovascular: Regular Rate, Regular Rhythm GI/Abdominal Exam: Normal Bowel Sounds, Soft, Non-Tender, No Organomegaly, No Distention Extremities: Normal Inspection, Normal Range of Motion, Non-Tender, No Pedal Edema, Normal Capillary Refill Skin: Warm, Dry, Intact Neurological: No New Focal Deficit Psy/Mental Status: Alert, Normal Affect, Normal Mood - Problem List & Annotations (1) Pre-eclampsia, delivered SNOMED Code(s): 436063592, [id number] Code(s): O14.94 - UNSPECIFIED PRE-ECLAMPSIA, COMPLICATING CHILDBIRTH Status : Acute Current Visit: Yes (2) Vaginal delivery SNOMED Code(s): 114182333 Code(s): O80 - ENCOUNTER FOR FULL-TERM UNCOMPLICATED DELIVERY Status: Acute Current Visit: Yes - Problem List Review Problem List Initiated/Reviewed/Updated: Yes - Assessment Assessment:: PPD#2 after stable minimal lochia. blood pressures have been normal off of magnesium, Would like to go home today. - Plan Plan:: Dismiss to home with BP check in clinic this week. Discharge instructions reviewed.
[2018-08-01 10:29] VITALS: BP 127/79
== END 2018-08-01 11:00 | disposition home or self-care (01) | DRG 560 ==
LOC: MW.OB 07:53 → OBSVTOIN 07-30 07:53 → MW.OB 07-31 00:09
PROVIDERS: ADMIT Obstetrics & Gynecology; ATTEND Obstetrics & Gynecology
PROC: 3E0R3BZ Introduction of Anesthetic Agent into Spinal Canal, Percutaneous Approach (ICD-10-PCS; 2018-07-29)
PROC: 00HU33Z Insertion of Infusion Device into Spinal Canal, Percutaneous Approach (ICD-10-PCS; 2018-07-29)
PROC: 3E033VJ Introduction of Other Hormone into Peripheral Vein, Percutaneous Approach (ICD-10-PCS; principal; 2018-07-30)
PROC: 10907ZC Drainage of Amniotic Fluid, Therapeutic from Products of Conception, Via Natural or Artificial Opening (ICD-10-PCS; principal; 2018-07-30)
PROC: 6A550ZT Pheresis of Cord Blood Stem Cells, Single (ICD-10-PCS; principal; 2018-07-30)
PROC: 10E0XZZ Delivery of Products of Conception, External Approach (ICD-10-PCS; principal; 2018-07-30)
DX: O14.04 Mild to moderate pre-eclampsia, complicating childbirth (principal); Z37.0 Single live birth; O99.344 Other mental disorders complicating childbirth; F41.9 Anxiety disorder, unspecified; Z3A.38 38 weeks gestation of pregnancy; O13.4 Gestational [pregnancy-induced] hypertension without significant proteinuria, complicating childbirth; O69.81X0 Labor and delivery complicated by cord around neck, without compression, not applicable or unspecified; Z87.891 Personal history of nicotine dependence; Z88.6 Allergy status to analgesic agent; Z88.1 Allergy status to other antibiotic agents; Z88.5 Allergy status to narcotic agent; Z88.0 Allergy status to penicillin
CPT/HCPCS: 36415; 59025; 59409; 82803; 83735; 85014; 85018; 85027; 85460; 86850; 86900; 86901; A9270-GY; J2405; J2590; J2792; J3475; J7120

== ENCOUNTER 2020-01-13 10:39 | Emergency (ER) | payer BC ==
[2020-01-13] MEDS ORDERED: Lidocaine 2% Viscous Solution 15 ML Cup PO ONE (11:08)
[2020-01-13] MEDS ORDERED: Benzocaine 20% Topical Spray UD MUCMEM ONE (11:08)
--- NOTE | 2020-01-13 11:29 | EDM.PDOC ---
ED HPI GENERAL MEDICAL PROBLEM - General Chief Complaint: General Stated Complaint: TOOTH PAIN; FACIAL SWELLING Time Seen by Provider: 01/13/20 11:06 - History of Present Illness INITIAL COMMENTS - FREE TEXT/NARRATIVE: History of present illness: 24-year-old female presenting with left upper dental pain ongoing for the last 3 days. Apparently she saw her dentist 2-1/2 days ago for an emergency appointment and she was prescribed clindamycin which she has been taking, however she has been having ongoing pain. She has been taking 500 to 1000 mg of Tylenol and 400 mg of ibuprofen without improvement. No fevers. She did report that she developed some pain moving up into her upper jaw and she felt that there may be some swelling developing in this area as well. No difficulty opening or closing in the mouth and no difficulty talking or chewing. Review of systems: As per history of present illness and below otherwise all systems reviewed and negative. Past medical history: As per history of present illness and as reviewed below otherwise noncontributory. Surgical history: As per history of present illness and as reviewed below otherwise noncontributory. Social history: No reported history of drug or alcohol abuse. No tobacco Family history: As per history of present illness and as reviewed below otherwise noncontributory. Physical exam: GEN: no acute distress, well appearing HEENT: Atraumatic, normocephalic, mucous membranes moist, gum erythema and mild swelling over left maxillary teeth/jaw. There are several areas of dental decay in the left maxillary molars. No pointing abscess seen. No facial cellulitis or erythema. Minimally tender to touch over the left maxilla. EOMI. No submandibular or sub-lingual space swelling. No airway narrowing or obstruction. Neck: supple, nontender, trachea midline. Lungs: No respiratory distress. Heart: RRR Extremities: Atraumatic. Neurovascularly intact. Neuro: Awake, alert, oriented. Neuro Exam nonfocal. Skin: warm, dry, no lesions Diagnostics: [] Therapeutics: [] MDM: Impression: [] Plan: [] Definitive disposition and diagnosis as appropriate pending reevaluation and review of above. 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: , 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 , Other (See Below) Other PHLEBOTOMY DIRECTOR History: D&C Apr 2014 and Jun 2016 Psychiatric History: Reports: Anxiety - Infectious Disease History Infectious Disease History: Reports: None - Past Surgical History HEENT Surgical History: Reports: Other (See Below) Other HEENT Surgeries/Procedures: Neck Surgery Jul 2010 Female Surgical History: Reports: D&C Social & Family History - Family History Family Medical History: Noncontributory - Tobacco Use Smoking Status *Q: Never Smoker - Caffeine Use Caffeine Use: Reports: Coffee, Soda, Tea ED ROS GENERAL - Review of Systems Review Of Systems: See Below (See HPI) ED EXAM, GENERAL - Physical Exam Exam: See Below (see HPI) Course - Vital Signs Text/Narrative:: Left-sided dental pain, already on clindamycin per dentist. No signs of abscess or facial infection. Pain much improved after local anesthesia via dental ball and IM Toradol. Will discharge patient. Discussed good pain control. Last Recorded V/S: Last Vital Signs Temp 98.3 F 01/13/20 13:29 Pulse 85 01/13/20 13:29 Resp 16 01/13/20 13:29 BP 125/82 01/13/20 13:29 Pulse Ox 98 01/13/20 13:29 - Orders/Labs/Meds Meds: Medications Discontinued Medications Generic Name Dose Route Start Last Admin Trade Name Anastacia PRN Reason Stop Dose Admin Benzocaine 2 each 01/13/20 11:08 01/13/20 11:28 Hurricaine One 20% MUCMEM 01/13/20 11:09 2 each ONETIME ONE Administration Ketorolac Tromethamine 30 mg 01/13/20 13:16 01/13/20 13:28 Toradol IM 01/13/20 13:17 30 mg ONETIME ONE Administration Lidocaine HCl 15 ml 01/13/20 11:08 01/13/20 11:28 Xylocaine 2% Viscous PO 01/13/20 11:09 15 ml ONETIME ONE Administration - Re-Assessments/Exams Free Text/Narrative Re-Assessment/Exam: 01/13/20 13:24 Reassessment, the patient reports she has not had any improvement in pain after the dental ball placement. Therefore will give IM Toradol. 01/13/20 13:39 The patient is now feeling much better after receiving the IM Toradol. She would like to be discharged. Discussed need for follow-up care with the dentist and continue clindamycin. Departure - Departure Time of Disposition: 13:39 Disposition: Home, Self-Care 01 Clinical Impression: Dental infection - Discharge Information Instructions: Preventive Dental Care, Adult Referrals: Felicitas Oshea DO [Primary Care Provider] - Forms: ED Department Discharge Additional Instructions: Please follow-up with your dentist as soon as possible for reevaluation. Return to the emergency department if you develop any fever or chills. Please continue to take the clindamycin until all pills are done. The following information is given to patients seen in the emergency department who are being discharged to home. This information is to outline your options for follow-up care. We provide all patients seen in our emergency department with a follow-up referral. The need for follow-up, as well as the timing and circumstances, are variable depending upon the specifics of your emergency department visit. If you don't have a primary care physician on staff, we will provide you with a referral. We always advise you to contact your personal physician following an emergency department visit to inform them of the circumstance of the visit and for follow-up with them and/or the need for any referrals to a consulting s pecialist. The emergency department will also refer you to a specialist when appropriate. This referral assures that you have the opportunity for follow-up care with a specialist. All of these measure are taken in an effort to provide you with optimal care, which includes your follow-up. Under all circumstances we always encourage you to contact your private physician who remains a resource for coordinating your care. When calling for follow-up care, please make the office aware that this follow-up is from your recent emergency room visit. If for any reason you are refused follow-up, please contact the [facility] Emergency Department at and asked to speak to the emergency department charge nurse. Sepsis Event Note (ED) - Evaluation Sepsis Screening Result: No Definite Risk
[2020-01-13] MEDS ORDERED: Ketorolac 30 MG/ML SDV IM ONE (13:16)
[2020-01-13 13:30] VITALS: BP 125/82; PULSE 85
== END 2020-01-13 13:50 | disposition home or self-care (01) ==
LOC: MW.ED 10:39
DX: K04.7 Periapical abscess without sinus (principal); K02.9 Dental caries, unspecified; F41.9 Anxiety disorder, unspecified; Z88.0 Allergy status to penicillin; Z88.1 Allergy status to other antibiotic agents; Z88.5 Allergy status to narcotic agent; Z79.899 Other long term (current) drug therapy
CPT/HCPCS: 96372; 99282; A9270; J1885